=== PATIENT | male | born 1990 | race Caucasian/White ===

== ENCOUNTER 2019-04-01 21:35 | Emergency (ER) | payer BC ==
[~2019-04-01] VITALS: Ht 167.6 cm; Wt 57.4 kg
[2019-04-01 21:54] VITALS: BP 122/73
[2019-04-01] MEDS ORDERED: FLUORESCEIN SODIUM OPHTH 1 EA STRIP OP ONE (22:30)
[2019-04-01] MEDS ORDERED: IV NS 0.9% 1,000 ML BAG IV ONE (22:30)
[2019-04-01] MEDS ORDERED: TETRAcaine 5 ML BOTTLE EACHEYE ONE (22:30)
[2019-04-01] MEDS ORDERED: FLUORESCEIN SODIUM OPHTH 1 EA STRIP ONE (22:31)
--- NOTE | 2019-04-01 22:38 | NUR ---
Patient discharged to home in stable condition. Written and verbal after care instructions given. Patient verbalizes understanding of instruction.
== END 2019-04-01 22:39 | disposition home or self-care (01) ==
LOC: ER 21:38
DX: S05.02XA Injury of conjunctiva and corneal abrasion without foreign body, left eye, initial encounter (principal); X58.XXXA Exposure to other specified factors, initial encounter; Y93.89 Activity, other specified; Y92.89 Other specified places as the place of occurrence of the external cause; Y99.8 Other external cause status